=== PATIENT | female | born 1995 | race African-American/Black ===

== ENCOUNTER 2019-07-31 11:20 | Emergency (ER) | payer OTHER ==
[~2019-07-31] VITALS: Ht 152.4 cm; Wt 46.7 kg
[2019-07-31 11:32] VITALS: Ht 152.4 cm; Wt 46.7 kg
[2019-07-31 15:06] VITALS: BP 127/79
== END 2019-07-31 15:06 | disposition home or self-care (01) ==
LOC: ED 11:20
DX: J02.0 Streptococcal pharyngitis (principal)
CPT/HCPCS: J0561; J1885